=== PATIENT | male | born 1960 | race Caucasian/White ===

== ENCOUNTER → 2020-01-05 14:56 | Outpatient (CLI) | payer BC, SELFPAY ==
--- NOTE | 2020-01-05 15:00 | DI.CT.S_ITS ---
PROCEDURE: CT KIDNEY URETER BLADDER (KUB) INDICATIONS: GROSS HEMATURIA TECHNIQUE: Noncontrast 5 mm thick sections acquired from the diaphragms to the symphysis. 5 mm thick coronal and sagittal reformats were then performed. For radiation dose reduction, the following was used: automated exposure control, adjustment of mA and/or kV according to patient size. COMPARISON: None. FINDINGS: Image quality: Excellent. Lung bases: Lung bases are clear. Heart size is normal. Urinary system: Right kidney: No stone or hydronephrosis. Right ureter: Unremarkable. Left kidney: There are 2 tiny cysts nonobstructing stones in the lower pole, measuring approximately 1 mm. No hydronephrosis. Left ureter: There is a nonobstructing stone in the distal left ureter at approximately the level of S2. Bladder: No bladder stones. Mild bladder wall thickening. Other solid organs: Liver is normal in size. Gallbladder is surgically absent. Pancreas is normal in contours. Spleen is normal in size. No adrenal nodules. Peritoneum and bowel: Unenhanced bowel loops demonstrate normal wall thickness and caliber. No free fluid or air. Nodes and vessels: No retroperitoneal or mesenteric adenopathy by size criteria. Aorta and inferior vena cava are normal in caliber. Abdominal wall: No ventral hernias. Pelvis: No free pelvic fluid. Small right inguinal hernia containing fat. Bones: No suspicious bony lesions. No vertebral body compression fractures. IMPRESSION: 1. Nonobstructing distal left ureteral stone measuring 3 mm x 4 mm. No hydronephrosis. 2. There are 2 tiny, 1 mm stones in the lower pole of the left kidney. 3. Small right inguinal hernia containing fat. Dictated by: Brian Barrientos M.D. on 01/05/2020 at 15:23 Approved by: Brian Barrientos M.D. on 01/05/2020 at 15:36
== END ==
PROVIDERS: Referring Provider Internal Medicine; Visit Provider Internal Medicine
DX: R31.0 Gross hematuria (principal); N20.0 Calculus of kidney; N20.1 Calculus of ureter; K40.90 Unilateral inguinal hernia, without obstruction or gangrene, not specified as recurrent
CPT/HCPCS: 74176

== ENCOUNTER → 2020-01-16 14:25 | Outpatient (CLI) | payer BC, SELFPAY ==
--- NOTE | 2020-01-16 | DI.RAD.S_ITS ---
PROCEDURE: XR LUMBAR SPINE 2-3V INDICATIONS: LUMBAR DISC HERNIATION TECHNIQUE: 5 views of the lumbar spine were acquired. COMPARISON: None. FINDINGS: Bones: 5 [id number] vertebrae are present. Trace multilevel retrolisthesis. Mild multilevel disc degeneration and facet joint arthropathy at the L5-S1 level. No vertebral body compression fractures. No suspicious bony lesions. Soft tissues: Overlying bowel gas pattern is normal. No suspicious soft tissue calcifications. IMPRESSION: Multilevel spondylosis. Dictated by: Akshat Keith [facility] Interpreted: Brian Barrientos MD on 01/16/2020 at 16:08 Approved by: Brian Barrientos M.D. on 01/16/2020 at 16:39
== END ==
PROVIDERS: PCP Physician Assistant; Referring Provider Physician Assistant; Visit Provider Physician Assistant
DX: M51.26 Other intervertebral disc displacement, lumbar region (principal); M47.817 Spondylosis without myelopathy or radiculopathy, lumbosacral region
CPT/HCPCS: 72100

== ENCOUNTER → 2020-01-26 14:21 | Outpatient (CLI) | payer OTHER, SELFPAY ==
[2020-01-27 10:40] LABS: COVID19 Sendout Not Detected (Not Detect)
== END ==
PROVIDERS: PCP Physician Assistant; Visit Provider Physician Assistant
DX: Z11.59 Encounter for screening for other viral diseases (principal)
CPT/HCPCS: 87635

== ENCOUNTER 2020-01-29 06:48 | Day surgery (SDC) | payer OTHER, SELFPAY ==
[2020-01-29 07:10] VITALS: BMI 33.1
[2020-01-29 07:15] VITALS: BP 140/87; PULSE 75; RESP 12; TEMP 36.4; O2SAT 96
[2020-01-29] MEDS: LACTATED RINGERS 1,000 ML 200 ML IV (07:23)
--- NOTE | 2020-01-29 07:43 | P.HP_ITS ---
History of Present Illness History of Present Illness Date Patient Seen: 01/29/20 Time Patient Seen: 07:44 Chief complaint: SDC Narrative: The patient presents for colorectal sreening. The previous colonoscopy 12 years ago which was normal.. No personal or family history of colon cancer. On further history denies any recent gastrointestinal symptoms. No nausea, vomiting, abdominal pain, loss of appetite, unexplained weight loss, change in bowel habits, diarrhea, constipation, melena, hematochezia, or bright red blood per rectum. Patient History Medical History (Updated 01/29/20 @ 07:45 by Neri Duarte MD) Afib (Acute) HTN (hypertension) (Acute) Obesity (Acute) Family & Social History Social History: household members spouse Tobacco & Substance use: Smoking Status Former smoker alcohol intake current alcohol intake frequency holiday/special occasion Substance Use Type does not use Meds Home Medications and Allergies Home Medications Medication Instructions Recorded Confirmed Type hydrochlorothiazide 25 mg PO DAILY #0 04/14/10 01/29/20 History sodium,potassium,mag sulfates 17.5 177 ml PO DAILY #354 ml 01/23/20 01/29/20 Rx gram-3.13 gram-1.6 gram oral soln aspirin 81 mg PO DAILY 01/29/20 01/29/20 History levofloxacin 500 mg PO DAILY 01/29/20 01/29/20 History losartan 100 mg PO DAILY 01/29/20 01/29/20 History metoprolol succinate 50 mg PO DAILY 01/29/20 01/29/20 History multivitamin 1 tab PO DAILY 01/29/20 01/29/20 History pravastatin 80 mg PO BEDTIME 01/29/20 01/29/20 History tamsulosin 0.4 mg PO BEDTIME 01/29/20 01/29/20 History Allergies Allergy/AdvReac Type Severity Reaction Status Date / Time azithromycin [AZITHROMYCIN] AdvReac Intermediate A. FIB Verified 01/29/20 07:04 Review of Systems Review of Systems Narrative: A 10 point review of systems is negative except as noted in the HPI Exam Vital Signs (past 8 hours): - 01/29/20 07:15 Temperature 97.6 F Pulse Rate 75 Respiratory Rate 12 Blood Pressure 140/87 Pulse Oximetry 96 Oxygen Delivery Method Room Air Narrative Exam Narrative: General-no acute distress, well nourished HEENT-moist mucous membranes, no scleral icterus Neck-supple, no lymphadenopathy Chest- non labored respirations, clear to auscultation bilaterally Cardiac-regular rate no peripheral edema Abdomen-soft, nontender, non distended Extremities-warm, well perfused Neurological-alert and oriented, no focal deficits Assessment & Plan Assessment and plan (1) Screening for colon cancer: Status: Acute Assessment & Plan narrative: The patient requires colorectal screening and colonoscopy is recommended. Technical details were discussed. Risks, benefits, alternatives explained. Risks including but not limited to myocardial infarction, aspiration, bleeding, pain, missed lesion, incomplete examination, need for further radiographic studies, colonic perforation, and need for major abdominal surgery were discussed. All questions were answered to their satisf action, and they are in agreement with this plan.
[2020-01-29] MEDS: MIDAZOLAM 5 MG/5 ML VIAL IV (07:56)
[2020-01-29] MEDS: fentaNYL 250 MCG/5 ML INJ IV (07:56)
--- NOTE | 2020-01-29 08:06 | PM.OP.ENDO ---
Operative Date/Time/Diagnoses Date of procedure: 01/29/20 Time of procedure: 08:07 Pre-op diagnosis: Screening colonoscopy Post-op diagnosis: same Procedure & Clinicians Study performed: Colonoscopy Same procedure as scheduled: Yes Indications: 59-year-old man last colonoscopy 12 years ago presents for routine screening. Surgeon: Neri Duarte Procedure Notes SCOAP/Timeout: Performed Procedure in detail: Patient placed in left lateral recumbent position. Time out was performed. Procedural sedation was administered with Versed and Fentanyl. Examination began with a thorough inspection of the perianal area there was no evidence of fissures, fistulae, external hemorrhoids or cutaneous malignancy. The colonoscopy scope was then placed into the rectum the the lumen was insufflated with air. The scope was carefully advanced forward. Ultimately the cecum was intubated and confirmed by identification of the ileocecal valve and the confluence of the taenia. The scope was then slowly withdrawn examining colon thoroughly in all directions. In the rectum the rectal columns were identified and retroflexion of the scope was performed for inspection of the distal rectum and anal canal. The colonoscopy was notable for the followin. Quality of the preparation-excellent 2. No masses or polyps 3. Grade 1 internal hemorrhoids Scope withdrawal time: 6 Sedation minutes: 19 Findings: internal hemorrhoids Specimen(s): none sent Complications: none Impression: Normal colonoscopy Post-procedure Recommendations: Colonscopy in 10 years Disposition: same day surgery
[2020-01-29 08:11] VITALS: BP 135/72; PULSE 66; RESP 12; TEMP 36.6; O2SAT 96
[2020-01-29 08:17] VITALS: BP 122/72; PULSE 71; RESP 15; TEMP 37; O2SAT 94
[2020-01-29 08:22] VITALS: BP 126/83; PULSE 71; RESP 15; TEMP 36.9; O2SAT 94
[2020-01-29 08:33] VITALS: BP 140/81; PULSE 68; RESP 16; TEMP 36.3; O2SAT 94
== END 2020-01-29 08:40 | disposition home or self-care (01) ==
PROVIDERS: PCP Internal Medicine; Referring Provider Internal Medicine; Visit Provider Surgery
PROC: 0DJD8ZZ Inspection of Lower Intestinal Tract, Via Natural or Artificial Opening Endoscopic (ICD-10-PCS; CPT 45378; principal; 2020-01-29 07:45)
DX: Z12.11 Encounter for screening for malignant neoplasm of colon (principal); I48.91 Unspecified atrial fibrillation; I10 Essential (primary) hypertension; E66.9 Obesity, unspecified; Z87.891 Personal history of nicotine dependence
CPT/HCPCS: G0121; 99152; J2250; J3010

== ENCOUNTER → 2020-02-02 12:07 | Outpatient (CLI) | payer BC, SELFPAY ==
--- NOTE | 2020-02-02 | DI.MRI.S_ITS ---
PROCEDURE: MR LUMBAR SPINE WO CON INDICATIONS: Radiculopathy, lumbar region TECHNIQUE: Noncontrast sagittal T1 spin echo and T2 fast echo, sagittal STIR, axial T1 and T2 fast spin echo through the lumbar spine. In cases with scoliosis, additional coronal T2 fast spin echo may be performed. COMPARISON: [facility], CR, XR LUMBAR SPINE 2-3V, 01/16/2020, 14:20. FINDINGS: Image quality: Excellent. Alignment and Curvature: There is normal bony alignment. Bone Marrow: Marrow is of normal overall signal. No acute vertebral body compression fractures. Spinal Cord: Conus medullaris terminates at the L1-L2 level. Visualized cord demonstrates normal signal and size. Paraspinous Soft Tissues: No paravertebral masses. T12-L1: No canal stenosis or foraminal stenosis. L1-L2: No canal stenosis or foraminal stenosis. L2-L3: Mild right paracentral disc protrusion indenting on the thecal sac. Moderate resulting canal stenosis. Facet and ligament hypertrophy. No significant foraminal stenosis. L3-L4: Diffuse disc bulge. Very mild facet and ligament hypertrophy. Mild canal stenosis. Mild bilateral foraminal stenosis. L4-L5: Mild posterior disc bulge. Borderline canal stenosis. Bilateral foraminal annulus tears associated with mild bilateral foraminal disc bulges. Mild bilateral foraminal narrowing. L5-S1: Mild disc bulge. No canal stenosis. IMPRESSION: 1. At L2-L3, there is a mild right paracentral disc protrusion indenting on the thecal sac. There is moderate canal stenosis. 2. Canal stenosis is mild at L3-L4 and borderline at L4-L5. 3. At L4-L5, there are bilateral foraminal annulus tear is associated with mild bilateral foraminal disc bulges. Question: Does this patient have right and/or left L4 radiculopathy? Dictated by: Brian Barrientos M.D. on 02/02/2020 at 13:08 Approved by: Brian Barrientos M.D. on 02/02/2020 at 13:14
== END ==
PROVIDERS: PCP Internal Medicine; Referring Provider Internal Medicine; Visit Provider Internal Medicine
DX: M51.16 Intervertebral disc disorders with radiculopathy, lumbar region (principal); M48.061 Spinal stenosis, lumbar region without neurogenic claudication
CPT/HCPCS: 72148

== ENCOUNTER → 2020-02-27 08:43 | Outpatient (CLI) | payer BC, SELFPAY ==
--- NOTE | 2020-02-27 08:44 | DI.RAD.S_ITS ---
PROCEDURE: XR KUB INDICATIONS: kidney stone TECHNIQUE: One view of the abdomen acquired. COMPARISON: [facility], CT, CT KIDNEY URETER BLADDER (KUB), 01/05/2020, 15:03. FINDINGS: Surgical changes and devices: None. Bowel: Bowel gas pattern is normal. Soft tissues: Probable 4 mm stone at the left UVJ. There are multiple calcific densities in pelvis consistent with pelvic phleboliths. Visualized solid organ contours appear normal in size. Bones: No suspicious bony lesions. IMPRESSION: Possible 4 mm stone at the left UVJ. Dictated by: Skylar Rojas M.D. on 02/27/2020 at 10:25 Approved by: Skylar Rojas M.D. on 02/27/2020 at 10:28
== END ==
PROVIDERS: PCP Internal Medicine; Referring Provider Specialist; Visit Provider Specialist
DX: N20.0 Calculus of kidney (principal)
CPT/HCPCS: 74018

== ENCOUNTER → 2020-03-01 16:17 | Outpatient (ROUT) | payer BC, SELFPAY ==
[2020-03-03 09:32] LABS: COVID19 Sendout Not Detected (Not Detect)
== END ==
PROVIDERS: PCP Internal Medicine; Visit Provider Physician Assistant
DX: Z11.59 Encounter for screening for other viral diseases (principal)
CPT/HCPCS: 87635

== ENCOUNTER 2020-03-04 14:20 | Day surgery (SDC) | payer BC, SELFPAY ==
[2020-02-29 10:43] VITALS: BMI 33.6
[2020-03-04 14:30] VITALS: BP 156/80; PULSE 85; RESP 18; TEMP 36.4; O2SAT 97; BMI 33.6
[2020-03-04] MEDS: LACTATED RINGERS 1,000 ML 42 ML IV (14:52)
--- NOTE | 2020-03-04 15:37 | PM.PREOP ---
Pre-operative Note Interval Note History & Physical reviewed/Exam performed by Physician: Yes Changes to H&P: No
[2020-03-04] MEDS: CEFAZOLIN VIAL 3 GM in SODIUM CHLORIDE 0.9% 100 ML 200 ML IV (16:02)
--- NOTE | 2020-03-04 16:20 | SUR.OPER ---
Lithotomy on padded OR bed, head on pillow, arms secured on padded arm boards at <90 degrees abduction. Legs secured in padded yellow fins stirrups.
[2020-03-04 16:55] VITALS: BP 124/77; PULSE 85; RESP 12; TEMP 36.2; O2SAT 93
[2020-03-04 17:01] VITALS: BP 143/82; PULSE 82; RESP 10; O2SAT 94
--- NOTE | 2020-03-04 17:01 | PM.OP.1 ---
Operative Date/Time/Diagnoses Date of procedure: 03/04/20 Time of procedure: 17:01 Pre-op diagnosis: Obstructing 4 mm left distal ureteral calculus Post-op diagnosis: same Procedure & Clinicians Procedure: 1. Cystoscopy and left ureteroscopic laser lithotripsy. Same procedure as scheduled: Yes Indications: 1. Obstructing 4 mm left distal ureteral calculus. 2. Intractable left renal colic. Surgeon: Jeff Dill Click Yes if Unassisted: Yes Anesthesia Type: General Operative Notes Findings: The patient was positioned supine was administered general anesthesia. He was then repositioned semi lithotomy and the lower abdomen, genitalia, and perineum were prepped and draped in sterile fashion. A 22 [place]ic panendoscope was then passed lower urinary tract advanced proximally into the bladder. A 0.35 guidewire was selected and advanced and the working channel of the panendoscope, into left ureteral orifice, and then advanced proximally under direct and fluoroscopic guidance. Next, a 4 cm length and 12 Green[place]ic balloon dilating catheter was selected. This was advanced over the guidewire under direct visualization. Once positioned across the left ureterovesical junction the balloon was inflated to 18 atmospheres and held in position for 5 minutes. The balloon was then deflated and backloaded off the guidewire. The panendoscope was then backloaded off the guidewire. The semi rigid ureteral scope was then utilized and advanced into the lower urinary tract and then advanced into the left distal ureter were upon the index calculus was encountered about 2 cm above the ureterovesical junction. A 273 micron laser fiber was then selected. All operating room personnel and patient were fitted with laser safety eyewear. Lithotripsy was then commenced and the stone fragmented readily. Tiny fragments were then cleared from the ureteral lumen with hydrostatic and mechanical agitation. A final inspection of the ureter revealed no evidence of retained fragments. Intraoperative decision was made to not place a ureteral stent. The bladder was then drained completely. Numerous small fragments were retrieved, labeled as to the site of procurement and sent to the laboratory for crystallographic analysis. All instrumentation was then removed. The patient was then repositioned in supine, awakened, and transferred to a gurney in stable condition. Closure Type: not applicable Specimen(s): other (Stone fragments from left ureter) Estimated Blood Loss (mL): 0 Blood products transfused: none Tourniquet time (min): 0 Procedure in detail: See ?findings?. Complications: none Post-operative Condition: stable Disposition: PACU Plan for aftercare: Discharge home
[2020-03-04 17:05] VITALS: BP 133/79; PULSE 75; RESP 12; O2SAT 96
[2020-03-04] MEDS: METOCLOPRAMIDE 10 MG/2 ML INJ IV (17:07)
[2020-03-04 17:19] VITALS: BP 136/71; PULSE 75; RESP 16; TEMP 36.8; O2SAT 98
--- NOTE | 2020-03-04 17:24 | SUR.PHASEII ---
Call light within reach.
[2020-03-04 17:40] VITALS: BP 128/77; PULSE 70; RESP 16; TEMP 36.8; O2SAT 95
--- NOTE | 2020-03-04 17:52 | SUR.PHASEII ---
Pt voided before departure-
[2020-03-25 11:44] LABS: Size 2X2; Stone Analysis Source R URETER
== END 2020-03-04 17:52 | disposition home or self-care (01) ==
PROVIDERS: PCP Internal Medicine; Referring Provider Internal Medicine; Visit Provider Specialist
PROC: (CPT 52353; principal; 2020-03-04 15:30)
DX: N20.1 Calculus of ureter (principal); I48.91 Unspecified atrial fibrillation; N40.1 Benign prostatic hyperplasia with lower urinary tract symptoms; N13.8 Other obstructive and reflux uropathy; I10 Essential (primary) hypertension; E66.9 Obesity, unspecified; G47.30 Sleep apnea, unspecified; Z87.442 Personal history of urinary calculi
CPT/HCPCS: 52353; 76000; 82365; J0690; J1100; J2250; J2405; J2704; J2765; J3010

== ENCOUNTER → 2021-01-20 12:11 | Outpatient (CLI) | payer BC, SELFPAY ==
--- NOTE | 2021-01-20 12:12 | DI.RAD.S_ITS ---
PROCEDURE: XR KUB INDICATIONS: HX kidney stones TECHNIQUE: One view of the abdomen acquired. COMPARISON: [facility], CR, XR KUB, 02/27/2020, 8:34. FINDINGS: Surgical changes and devices: Surgical clips are seen in gallbladder fossa. Bowel: Bowel gas pattern is normal. Soft tissues: Previously described left distal ureteral calcification is no longer present. Numerous phleboliths are noted in lower pelvis bilaterally. No abdominal calcification is seen. Visualized solid organ contours appear normal in size. Bones: No suspicious bony lesions. IMPRESSION: No gross renal stone or ureteral stone is seen on the current study. Bilateral lower pelvic phleboliths. Dictated by: Ze Tran M.D. on 01/20/2021 at 12:24 Approved by: Ze Tran M.D. on 01/20/2021 at 12:25
== END ==
PROVIDERS: PCP Internal Medicine; Referring Provider Specialist; Visit Provider Specialist
DX: N20.1 Calculus of ureter (principal)
CPT/HCPCS: 74018

== ENCOUNTER 2023-12-19 16:07 | Emergency (ER) | payer BC, SELFPAY ==
[2023-12-19 16:38] VITALS: BP 143/57; PULSE 91; RESP 18; TEMP 37.9; O2SAT 96; BMI 33.7
[2023-12-19 21:09] VITALS: PULSE 99; O2SAT 98
[2023-12-19 21:10] VITALS: BP 167/75; PULSE 81; O2SAT 97
[2023-12-19 21:30] VITALS: BP 150/69; PULSE 75; O2SAT 97
--- NOTE | 2023-12-20 01:50 | ED.URI ---
HPI - URI/Sore Throat General Chief Complaint: Upper Respiratory Symptoms Stated Complaint: covid+ Source: patient Mode of arrival: Ambulatory History of Present Illness HPI Narrative: Patient left without seeing provider Related Data Home Medications Medication Instructions Recorded Confirmed aspirin 81 mg tablet,delayed 81 mg PO DAILY 01/29/20 02/12/21 release losartan 100 mg tablet 100 mg PO DAILY 01/29/20 02/12/21 metoprolol succinate 50 mg 50 mg PO DAILY 01/29/20 02/12/21 tablet,extended release 24 hr multivitamin 1 tab PO DAILY 01/29/20 02/12/21 pravastatin 80 mg tablet 80 mg PO BEDTIME 01/29/20 02/12/21 tamsulosin 0.4 mg capsule 0.4 mg PO BEDTIME 01/29/20 02/12/21 Previous Rx's Medication Instructions Recorded sodium,potassium,mag sulfates 17.5 177 ml PO DAILY 2 doses #354 mL 01/23/20 gram-3.13 gram-1.6 gram oral soln Allergies Allergy/AdvReac Type Severity Reaction Status Date / Time azithromycin [AZITHROMYCIN] AdvReac Intermediate A. 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 BPH w urinary obs/LUTS Calcium nephrolithiasis Gross hematuria Hematuria History of nephrolithiasis HLD (hyperlipidemia) HTN (hypertension) Left ureteral calculus Nephrolithiasis Obesity Sleep apnea Surgical History History of cholecystectomy History of ureter stent (11/2017) Vasectomy status Social History household members: spouse Smoking Status: Former smoker alcohol intake: current Smoking Status: Former smoker alcohol intake frequency: holidays/special occasions only Substance Use Type: does not use Exam Initial Vital Signs Initial Vital Signs: Vital Signs Temperature 100.3 F H 12/19/23 16:38 Pulse Rate 91 H 12/19/23 16:38 Respiratory Rate 18 12/19/23 16:38 Blood Pressure 143/57 H 12/19/23 16:38 Pulse Oximetry 96 12/19/23 16:38 Oxygen Delivery Method Room Air 12/19/23 16:38 Course Vital Signs Vital signs: Vital Signs - 8 hr 12/19/23 21:09 12/19/23 21:10 12/19/23 21:10 Pulse Rate 99 H 81 Blood Pressure 167/75 H Pulse Oximetry 98 97 12/19/23 21:30 12/19/23 21:30 Pulse Rate 75 Blood Pressure 150/69 H Pulse Oximetry 97 Discharge Plan Departure Patient Disposition: Left Without Being Seen Clinical Impression: Patient left before evaluation by physician Prescriptions: No Action sodium,potassium,mag sulfates 17.5-3.13-1.6 gram recon soln 177 ml PO DAILY Qty: 354 0RF Rx Instructions: Please take medication per [facility] written instructions. multivitamin Tablet 1 tab PO DAILY metoprolol succinate 50 mg tablet extended release 24 hr 50 mg PO DAILY aspirin 81 mg Tablet,Delayed Release (Dr/Ec) 81 mg PO DAILY pravastatin 80 mg Tablet 80 mg PO BEDTIME tamsulosin 0.4 mg Capsule 0.4 mg PO BEDTIME losartan 100 mg tablet 100 mg PO DAILY
== END 2023-12-19 21:43 | disposition left against medical advice (07) ==
PROVIDERS: Emergency Provider Emergency Medicine
CPT/HCPCS: 99281